=== PATIENT | male | born 1955 | race Caucasian/White ===

== ENCOUNTER 2021-01-01 18:53 | Inpatient (IN) ==
--- NOTE | 2021-01-01 20:48 | DR.GENAD ---
HPI Time Seen Time Seen by Provider: 01/01/21 20:47 PCP Primary Care Physician: WYATT RUTHERFORD Complaint/Symptoms Chief Complaint:: PT STATES TODAY HE HAS FELT WEAK AND FELT LIKE HE WAS OUT OF IT. STATES HE HAS ONLY LAID AROUND TODAY. STATES HE HASN'T FELT LIKE DOING ANYTHING. COVID-19 Coronavirus risk:travel/contact w/high risk person: No Has patient experienced Coronavirus symptoms: No Source History Provided: Patient Mode of Arrival Mode of Arrival: Ambulatory Timing Onset of Chief Complaint: 01/01/21 PMH PMH Past Medical History: Yes Past Medical History Comment: ESOPHAGEAL CANCER CHRONIC [place] CATHETER-URINARY RETENTION Past Surgical History: Yes Surgical History: Other Family History History of Family Medical Conditions: No Social History Does patient currently use any type of tobacco product: No Have you used tobacco products in the last 12 months: No Type of Tobacco Use: None Does any household member use tobacco: No Alcohol Use: None Do you use any recreational Drugs:: No Lives With: Spouse Lives Where: Home Travel Risk Coronavirus risk:travel/contact w/high risk person: No Has patient experienced Coronavirus symptoms: No Infectious screening Have you traveled outside the country in the last 6 months?: No Isolation: Standard PE Vital Signs Vitals: Temperature 97.8 F Pulse Rate 117 Respiratory Rate 16 Blood Pressure 101/64 O2 Sat by Pulse Oximetry 99 ROR Labs Reviewed Result Diagrams: 01/01/21 21:21 01/01/21 21:21 Laboratory: WBC 12.1 X10^3/uL (3.6-10.0) H 01/01/21 21:21 RBC 4.23 X10^6/uL (4.7-6.0) L 01/01/21 21:21 Hgb 11.7 g/dL (13.5-18.0) L 01/01/21 21:21 Hct 35.3 % (42.0-54.0) L 01/01/21 21:21 MCV 83.4 fL (80.0-100.0) 01/01/21 21:21 MCH 27.7 pg (27.0-34.0) 01/01/21 21:21 MCHC 33.2 g/dL (33.0-35.0) 01/01/21 21:21 RDW 14.4 % (11.6-16.5) 01/01/21 21:21 Plt Count 586 X10^3/uL (150.0-450.0) H 01/01/21 21:21 Plt Count Comment Increased (ADEQUATE) 01/01/21 21:21 MPV 7.2 fL (7.4-11.0) L 01/01/21 21:21 Neut % (Auto) 88.5 % (42.0-75.0) H 01/01/21 21:21 Lymph % (Auto) 1.6 % (21.0-51.0) L 01/01/21 21:21 [place] % (Auto) 6.6 % (0.0-13.0) 01/01/21 21:21 Eos % (Auto) 3.1 % (0.9-2.9) H 01/01/21 21:21 Baso % (Auto) 0.2 % (0.2-1.0) 01/01/21 21:21 Neut # (Auto) 10.7 x10^3/uL (2.2-4.8) H 01/01/21 21:21 Lymph # (Auto) 0.2 X10^3/uL (1.3-2.9) L 01/01/21 21:21 [place] # (Auto) 0.8 x10^3/uL (0.3-0.8) 01/01/21 21:21 Eos # (Auto) 0.4 x10^3/uL (0.0-0.2) H 01/01/21 21:21 Baso # (Auto) 0.0 X10^3/uL (0.0-0.1) 01/01/21 21:21 Absolute Nucleated RBC 0.0 /100WBC 01/01/21 21:21 Total Counted 100 01/01/21 21:21 Neutrophils % (Manual) 84 % (39-76) H 01/01/21 21:21 Band Neutrophils % 1 % (0-10) 01/01/21 21:21 Lymphocytes % (Manual) 3 % (13-43) L 01/01/21 21:21 Monocytes % (Manual) 7 % (4-9) 01/01/21 21:21 Eosinophils % (Manual) 5 % (0-6) 01/01/21 21:21 Plt Morphology Comment Normal (NORMAL) 01/01/21 21:21 RBC Morphology Normal (NORMAL) 01/01/21 21:21 Sodium 124 mmol/L (136-145) L* 01/01/21 21:21 Corrected Sodium TNP 01/01/21 21:21 Potassium 4.5 mmol/L (3.5-5.1) 01/01/21 21:21 Chloride 89 mmol/L (98-107) L 01/01/21 21: Carbon Dioxide 24.7 mmol/L (21-32) 01/01/21 21:21 BUN 11 mg/dL (7-18) 01/01/21 21:21 Creatinine 0.73 mg/dL (0.70-1.30) 01/01/21 21:21 Est GFR (MDRD) Af Amer > 60 (>60) 01/01/21 21:21 Est GFR (MDRD) Non-Af > 60 (>60) 01/01/21 21: Glucose 101 mg/dL (65-99) H 01/01/21 21:21 Calcium 8.7 mg/dL (8.5-10.1) 01/01/21 21: Corrected Calcium 10.1 mg/dL (8.5-10.1) 01/01/21 21: Total Bilirubin 0.30 mg/dL (0.2-1.0) 01/01/21 21:21 AST 114 Units/L (15-37) H 01/01/21 21:21 ALT 53 Units/L (12-78) 01/01/21 21: Alkaline Phosphatase 198 Units/L (46-116) H 01/01/21 21: Total Protein 7.1 g/dL (6.4-8.2) 01/01/21 21: Albumin 2.2 g/dL (3.4-5.0) L 01/01/21 21: Globulin 4.9 g/dL (2.5-4.5) H 01/01/21 21:21 Albumin/Globulin Ratio 0.4 Ratio (1.1-2.1) L 01/01/21 21:21 Specimen Type Clean catch urine 01/01/21 22:20 Urine Color Yellow (YELLOW) 01/01/21 22:20 Urine Appearance Cloudy (CLEAR) 01/01/21 22:20 Urine pH 5.0 (5.0 - 8.0) 01/01/21 22:20 Ur Specific [place] 1.020 (1.000-1.030) 01/01/21 22:20 Urine Protein 3+ (NEGATIVE) 01/01/21 22:20 Urine Glucose (UA) Negative (NEGATIVE) 01/01/21 22:20 Urine Ketones Negative (NEGATIVE) 01/01/21 22:20 Urine Occult Blood 5+ (NEGATIVE) 01/01/21 22:20 Urine Nitrite Positive (NEGATIVE) 01/01/21 22:20 Urine Bilirubin Negative (NEGATIVE) 01/01/21 22:20 Urine Urobilinogen 1+ (NORMAL) 01/01/21 22:20 Ur Leukocyte Esterase 3+ (NEGATIVE) 01/01/21 22:20 SARS CoV-2 RNA Rapid BORIS Negative (NEGATIVE) 01/01/21 23:33 Opioid Opioid Risk Tool Age (Joon box if 16-45): No Total: 0 Total Score Risk Category: Low Risk Copyright: Savage AVITIA predicting aberrant behaviors Diagnosis Discharge Problem: Acute hyponatremia, Acute dehydration UTI (urinary tract infection) Qualifiers: Urinary tract infection type: site unspecified Hematuria presence: with hematuria Qualified Code(s): N39.0 - Urinary tract infection, site not specified Instructions Forms: Precautions for COVID19 [facility] Patient Portal Social Distancing
[2021-01-01 21:32] LABS: BASOPHILS % (AUTO) 0.2 % (0.2-1.0); EOSINOPHILS # (AUTO) 0.4 x10^3/uL (0.0-0.2); EOSINOPHILS % (AUTO) 3.1 % (0.9-2.9); HEMATOCRIT 35.3 % (42.0-54.0); HEMOGLOBIN 11.7 g/dL (13.5-18.0); LYMPHOCYTES # (AUTO) 0.2 X10^3/uL (1.3-2.9); LYMPHOCYTES % (AUTO) 1.6 % (21.0-51.0); MEAN CORPUSCULAR HEMOGLOBIN 27.7 pg (27.0-34.0); MEAN CORPUSCULAR HGB CONC 33.2 g/dL (33.0-35.0); MEAN CORPUSCULAR VOLUME 83.4 fL (80.0-100.0); MEAN PLATELET VOLUME 7.2 fL (7.4-11.0); MONOCYTES # (AUTO) 0.8 x10^3/uL (0.3-0.8); MONOCYTES % (AUTO) 6.6 % (0.0-13.0); NEUTROPHILS # (AUTO) 10.7 x10^3/uL (2.2-4.8); NEUTROPHILS % (AUTO) 88.5 % (42.0-75.0); PLATELET COUNT 586 X10^3/uL (150.0-450.0); RED BLOOD COUNT 4.23 X10^6/uL (4.7-6.0); RED CELL DISTRIBUTION WIDTH 14.4 % (11.6-16.5); WHITE BLOOD COUNT 12.1 X10^3/uL (3.6-10.0)
--- NOTE | 2021-01-01 21:38 | RAD ---
HISTORYPT STATES TODAY HE HAS FELT WEAK AND FELT LIKE HE WAS OUT OF IT. STATES HE HAS ONLY LAID AROUND TODAY. STATES HE HASN'T FELT LIKE DOING ANYTHING.STUDYCHEST, 1 VIEWCOMPARISONNone availableTECHNIQUEChest radiographic imaging, AP portable projection, 1 imageFINDINGSNo cardiomegaly.Widening of the superior mediastinum, with the lobulated margin, 210.4 cm in with.1.4 cm nodular density in the right upper lobe.No focal airspace disease.No pleural effusion.No pneumothorax.No acute osseous abnormality.IMPRESSION1. Widening of the superior mediastinum could represent adenopathy, enlargement of the thymus or enlargement of an intrathoracic portion of the thyroid gland.2. 1.4 cm nodular density in the right upper lobe. Recommend a chest CT for further characterization.Electronically signed by: Romain Torres (Jan 01, 2021 21:37:40)
[2021-01-01 21:49] LABS: ALANINE AMINOTRANSFERASE 53 Units/L (12-78); ALBUMIN 2.2 g/dL (3.4-5.0); ALKALINE PHOSPHATASE 198 Units/L (46-116); ASPARTATE AMINO TRANSFERASE 114 Units/L (15-37); BLOOD UREA NITROGEN 11 mg/dL (7-18); CALCIUM 8.7 mg/dL (8.5-10.1); CARBON DIOXIDE 24.7 mmol/L (21-32); CHLORIDE 89 mmol/L (98-107); COR CA(FOR HYPOALB) 10.1 mg/dL (8.5-10.1); CREATININE 0.73 mg/dL (0.70-1.30); TOTAL PROTEIN 7.1 g/dL (6.4-8.2); eGFR NON BLACK RACES > 60 (>60)
[2021-01-01 21:56] LABS: SODIUM 124 mmol/L (136-145)
[2021-01-01 22:03] LABS: BAND NEUTROPHILS % 1 % (0-10); PLATELET MORPHOLOGY COMMENT NORMAL (NORMAL)
[2021-01-01 22:46] LABS: BILIRUBIN,URINE NEGATIVE (NEGATIVE); BLOOD/HEMOGLOBIN,URINE 5+ (NEGATIVE); GLUCOSE, URINE NEGATIVE (NEGATIVE); KETONES,URINE NEGATIVE (NEGATIVE); LEUKOCYTE ESTERASE ,URINE 3+ (NEGATIVE); NITRITES,URINE POSITIVE (NEGATIVE); PROTEIN,URINE 3+ (NEGATIVE); UROBILINOGEN,URINE 1+ (NORMAL)
[2021-01-01 22:51] LABS: APPEARANCE,URINE CLOUDY (CLEAR); COLOR,URINE YELLOW (YELLOW)
[2021-01-01] MEDS ORDERED: NS 1,000 ML IV 1,000 ML ONE (23:25)
[2021-01-01] MEDS: NS 1,000 ML IV 1,000 ML IV SCH (23:34)
[2021-01-02] MEDS ORDERED: ROCEPHIN 1 GRAM IV PREMIX 1 G/50 ML IV.SOLN. IV ONE ×2 (00:40→00:49)
[2021-01-02 04:29] VITALS: BMI 25.4
[2021-01-02] MEDS ORDERED: AMBIEN PO PRN (05:59)
[2021-01-02] MEDS ORDERED: HYDROMORPHONE 2 MG PO SCH (05:59)
[2021-01-02] MEDS ORDERED: BUTT CREAM (COMPOUND) TOP PRN (06:57)
[2021-01-02] MEDS: NS 1,000 ML IV 1,000 ML IV SCH ×3 (07:43→23:45)
[2021-01-02] MEDS ORDERED: DILAUDID ONE (08:40)
[2021-01-02] MEDS ORDERED: DURAGESIC 75 mcg/HR PATCH TD SCH (09:00)
[2021-01-02] MEDS: ZOFRAN TAB 4 MG PO PRN (10:00)
[2021-01-02] MEDS: COZAAR PO SCH (10:00)
[2021-01-02] MEDS: DILAUDID PO SCH ×4 (10:00→20:53)
[2021-01-02] MEDS: PriLOSEC PO SCH ×2 (10:01→20:55)
[2021-01-02 10:07] LABS: BASOPHILS # (AUTO) 0.1 X10^3/uL (0.0-0.1); BASOPHILS % (AUTO) 0.9 % (0.2-1.0); EOSINOPHILS # (AUTO) 0.3 x10^3/uL (0.0-0.2); EOSINOPHILS % (AUTO) 2.8 % (0.9-2.9); HEMATOCRIT 31.8 % (42.0-54.0); HEMOGLOBIN 10.9 g/dL (13.5-18.0); LYMPHOCYTES # (AUTO) 0.2 X10^3/uL (1.3-2.9); LYMPHOCYTES % (AUTO) 1.6 % (21.0-51.0); MEAN CORPUSCULAR HEMOGLOBIN 28.3 pg (27.0-34.0); MEAN CORPUSCULAR HGB CONC 34.2 g/dL (33.0-35.0); MEAN CORPUSCULAR VOLUME 82.6 fL (80.0-100.0); MEAN PLATELET VOLUME 7.2 fL (7.4-11.0); MONOCYTES # (AUTO) 0.5 x10^3/uL (0.3-0.8); MONOCYTES % (AUTO) 5.7 % (0.0-13.0); NEUTROPHILS # (AUTO) 8.4 x10^3/uL (2.2-4.8); PLATELET COUNT 649 X10^3/uL (150.0-450.0); RED BLOOD COUNT 3.85 X10^6/uL (4.7-6.0); RED CELL DISTRIBUTION WIDTH 14.4 % (11.6-16.5); WHITE BLOOD COUNT 9.4 X10^3/uL (3.6-10.0)
[2021-01-02 10:13] LABS: ALANINE AMINOTRANSFERASE 50 Units/L (12-78); ALBUMIN 2.2 g/dL (3.4-5.0); ALKALINE PHOSPHATASE 193 Units/L (46-116); ASPARTATE AMINO TRANSFERASE 107 Units/L (15-37); BLOOD UREA NITROGEN 11 mg/dL (7-18); CARBON DIOXIDE 27.7 mmol/L (21-32); CHLORIDE 91 mmol/L (98-107); COR CA(FOR HYPOALB) 10.4 mg/dL (8.5-10.1); CREATININE 0.77 mg/dL (0.70-1.30); SODIUM 128 mmol/L (136-145); TOTAL PROTEIN 7.2 g/dL (6.4-8.2); eGFR NON BLACK RACES > 60 (>60)
--- NOTE | 2021-01-02 11:21 | DR.H&P ---
H&P History & Physical for Day of: H&P Date: 01/02/21 Chief Complaint Chief Complaint: weakness, dehydration, constipation Allergies Allergies Allergy/AdvReac Type Severity Reaction Status Date / Time No Known Drug Allergies Allergy Verified 10/27/20 13:30 History of Present Illness History of Present Illness: Mr Palmer is a 65y/o male with recently diagnosed [place] 4 esophageal cancer. Patient was diagnosed last month, sees Dr Wen and is currently receiving radiation treatments. He was discharged from [facility] last week due to back pain. His fentanyl patch was increased from 25 mcg to 75mcg and started on hydromorphone 2mg tablet for cancer pain. Patient has severe constipation. He does not eat anything by mouth, everything is given via PEG tube. Patient was admitted for dehydration, hyponatremia, UTI and constipation. Labs and imaging reviewed CXR: showed wide mediastinum and nodules, CT was recommended. Plan: jess order CTA to asses further. Continue IV hydration with NS. Monitor BMP. Resume home medications. Continue IV Rocephin, follow urine culture. Add Zofran prn, enema for constipation. Continue pain control. Monitor AM labs/imaging. Time spent for clinical assessment, reviewing abs/imaging, physical exam, decision making and documentation greater than 45 mins. Past Medical History Past Medical History: CVA, GERD and Hypertension Additional Medical History: Stage 4 esophageal Ca Past Surgical History Surgical History: Other Social History Does patient currently use any type of tobacco product: No Have you used tobacco products in the last 12 months: No Type of Tobacco Use: None Does any household member use tobacco: No Alcohol Use: None Drug Use: None Prescription drug monitoring program results: PDMP reviewed and no concerns identified Medications Home Medications: No Known Drug Allergies Allergy (Verified 10/27/20 13:30) CONTINUE taking the following medications fentanyl 1 patch TRANSDERMAL DIRECTED 01/01/21 [History] finasteride 5 mg PO QHS 01/01/21 [History] hydrocodone-acetaminophen 15 ml PO Q6HR PRN 01/01/21 [History] hydromorphone 6 mg PO Q4H 01/01/21 [History] losartan 100 mg PO DAILY 01/01/21 [History] omeprazole 20 mg PO BID 01/01/21 [History] ondansetron HCl 4 mg PO QID PRN 01/01/21 [History] tamsulosin 0.4 mg PO QHS 01/01/21 [History] zolpidem 5 mg PO QHS PRN 01/01/21 [History] Labs Result Diagrams: 01/03/21 05:25 01/03/21 05:25 Labs: Laboratory WBC 9.4 X10^3/uL (3.6-10.0) 01/02/21 09:32 RBC 3.85 X10^6/uL (4.7-6.0) L 01/02/21 09:32 Hgb 10.9 g/dL (13.5-18.0) L 01/02/21 09:32 Hct 31.8 % (42.0-54.0) L 01/02/21 09:32 MCV 82.6 fL (80.0-100.0) 01/02/21 09:32 MCH 28.3 pg (27.0-34.0) 01/02/21 09:32 MCHC 34.2 g/dL (33.0-35.0) 01/02/21 09:32 RDW 14.4 % (11.6-16.5) 01/02/21 09:32 Plt Count 649 X10^3/uL (150.0-450.0) H 01/02/21 09:32 Plt Count Comment Increased (ADEQUATE) 01/01/21 21:21 MPV 7.2 fL (7.4-11.0) L 01/02/21 09:32 Neut % (Auto) 89.0 % (42.0-75.0) H 01/02/21 09:32 Lymph % (Auto) 1.6 % (21.0-51.0) L 01/02/21 09:32 [place] % (Auto) 5.7 % (0.0-13.0) 01/02/21 09:32 Eos % (Auto) 2.8 % (0.9-2.9) 01/02/21 09:32 Baso % (Auto) 0.9 % (0.2-1.0) 01/02/21 09:32 Neut # (Auto) 8.4 x10^3/uL (2.2-4.8) H 01/02/21 09:32 Lymph # (Auto) 0.2 X10^3/uL (1.3-2.9) L 01/02/21 09:32 [place] # (Auto) 0.5 x10^3/uL (0.3-0.8) 01/02/21 09:32 Eos # (Auto) 0.3 x10^3/uL (0.0-0.2) H 01/02/21 09:32 Baso # (Auto) 0.1 X10^3/uL (0.0-0.1) 01/02/21 09:32 Absolute Nucleated RBC 0.1 /100WBC 01/02/21 09:32 Total Counted 100 01/01/21 21:21 Neutrophils % (Manual) 84 % (39-76) H 01/01/21 21:21 Band Neutrophils % 1 % (0-10) 01/01/21 21:21 Lymphocytes % (Manual) 3 % (13-43) L 01/01/21 21:21 Monocytes % (Manual) 7 % (4-9) 01/01/21 21:21 Eosinophils % (Manual) 5 % (0-6) 01/01/21 21:21 Plt Morphology Comment Normal (NORMAL) 01/01/21 21:21 RBC Morphology Normal (NORMAL) 01/01/21 21:21 Sodium 128 mmol/L (136-145) L 01/02/21 09:32 Corrected Sodium TNP 01/02/21 09:32 Potassium 4.3 mmol/L (3.5-5.1) 01/02/21 09:32 Chloride 91 mmol/L (98-107) L 01/02/21 09:32 Carbon Dioxide 27.7 mmol/L (21-32) 01/02/21 09:32 BUN 11 mg/dL (7-18) 01/02/21 09:32 Creatinine 0.77 mg/dL (0.70-1.30) 01/02/21 09:32 Est GFR (MDRD) Af Amer > 60 (>60) 01/02/21 09:32 Est GFR (MDRD) Non-Af > 60 (>60) 01/02/21 09:32 Glucose 109 mg/dL (65-99) H 01/02/21 09:32 Calcium 9.0 mg/dL (8.5-10.1) 01/02/21 09:32 Corrected Calcium 10.4 mg/dL (8.5-10.1) H 01/02/21 09:32 Total Bilirubin 0.40 mg/dL (0.2-1.0) 01/02/21 09:32 AST 107 Units/L (15-37) H 01/02/21 09:32 ALT 50 Units/L (12-78) 01/02/21 09:32 Alkaline Phosphatase 193 Units/L (46-116) H 01/02/21 09:32 Total Protein 7.2 g/dL (6.4-8.2) 01/02/21 09:32 Albumin 2.2 g/dL (3.4-5.0) L 01/02/21 09:32 Globulin 5.0 g/dL (2.5-4.5) H 01/02/21 09:32 Albumin/Globulin Ratio 0.4 Ratio (1.1-2.1) L 01/02/21 09:32 Specimen Type Clean catch urine 01/01/21 22:20 Urine Color Yellow (YELLOW) 01/01/21 22:20 Urine Appearance Cloudy (CLEAR) 01/01/21 22:20 Urine pH 5.0 (5.0 - 8.0) 01/01/21 22:20 Ur Specific [place] 1.020 (1.000-1.030) 01/01/21 22:20 Urine Protein 3+ (NEGATIVE) 01/01/21 22:20 Urine Glucose (UA) Negative (NEGATIVE) 01/01/21 22:20 Urine Ketones Negative (NEGATIVE) 01/01/21 22:20 Urine Occult Blood 5+ (NEGATIVE) 01/01/21 22:20 Urine Nitrite Positive (NEGATIVE) 01/01/21 22:20 Urine Bilirubin Negative (NEGATIVE) 01/01/21 22:20 Urine Urobilinogen 1+ (NORMAL) 01/01/21 22:20 Ur Leukocyte Esterase 3+ (NEGATIVE) 01/01/21 22:20 SARS CoV-2 RNA Rapid BORIS Negative (NEGATIVE) 01/01/21 23:33 Review of Systems Constitutional: Weakness Eyes: No Symptoms Reported ENT: No Symptoms Reported Respiratory: No Symptoms Reported Cardiovascular: No Symptoms Reported Gastrointestinal: Nausea and Constipation Genitourinary: No Symptoms Reported Musculoskeletal: Other (abdominal and chest pain due to cancer ) Skin: No Symptoms Reported Neurological: No Symptoms Reported Physical Exam Vital Signs: Temperature 98.0 F Pulse Rate [Right] 92 Pulse Rate 117 Respiratory Rate 20 Blood Pressure [Left Arm] 136/71 Blood Pressure 101/64 O2 Sat by Pulse Oximetry 98 Oriented: Normal Eyes: Normal Ear: Normal Nose: Normal Throat: Dry Respiratory: Diminished Throughout Cardiovascular: Normal Auscultation: Bowel Sounds: Normal Palpation: Other (PEG tube intact, no sign of infection, no surrounding erythema ) Tenderness: Epigastric and Mild Skin: Decreased [place]urgur Musculoskeletal: Normal Psychiatric: Normal Mood Description: Calm Affect: Normal Speech Pattern: Clear and Appropriate Assessment/Plan (1) Acute hyponatremia: Status: Acute (2) Acute dehydration: Status: Acute (3) UTI (urinary tract infection): Qualifiers: Hematuria presence: with hematuria Urinary tract infection type: site unspecified Qualified Code(s): N39.0 - Urinary tract infection, site not specified; R31.9 - Hematuria, unspecified Status: Acute (4) Adenocarcinoma of esophagus, stage 4: Status: Acute (5) G tube feedings: Status: Acute (6) HTN (hypertension): Qualifiers: Hypertension type: primary hypertension Qualified Code(s): I10 - Essential (primary) hypertension Status: Acute Review H&P Reviewed: Yes Patient was examined?: Yes
[2021-01-02] MEDS ORDERED: HYDROGEN PEROXIDE 3% ONE (14:16)
--- NOTE | 2021-01-02 14:28 | CT ---
HISTORYFollow-up of abnormal findings on recent chest radiograph including right upper lobe nodule and widened mediastinum.STUDYCTA CHESTCOMPARISONChest radiograph dated 01/01/2021.TECHNIQUEMultiple axial images of the chest were obtained from the thoracic inlet to the upper abdomen after the administration of IV contrast. 3D reconstructions utilizing axial MIPS imaging was performed and reviewed. Dose reduction techniques including Automated Exposure Control (AEC) and adjustment of mA and kV were utilized.FINDINGSThis study is performed as a pulmonary embolus protocol and as such optimal evaluation of the mediastinal soft tissues and thoracic aorta is limited secondary to bolus timing. There are no filling defects through the segmental level of the pulmonary arterial system bilaterally. The main pulmonary artery is normal in size. The heart is normal in size without pericardial effusion. The thoracic aorta is normal in contour without aneurysmal dilatation.There is an abnormal appearance of the esophagus at and below the level of the reynaldo with diffuse circumferential thickening which measures up to 7 cm in diameter. There is extensive mediastinal lymphadenopathy with an approximately 5.0 x 6.5 x 7.3 cm soft tissue mass centered in the superior mediastinum near the level of the sternoclavicular junctions which may reflect lymphadenopathy as well. This mass is located along the posterior lateral aspect of the trachea on the left and results in deviation of the trachea and esophagus rightward. There are enlarged hilar lymph nodes on the right. Extensive lymphadenopathy is noted throughout the included portions of the upper abdomen. There are incompletely characterized hepatic hypodensities concerning for hepatic metastases. Percutaneous gastrostomy tube is present. Evaluation of the lung parenchyma demonstrates scattered bilateral pulmonary nodules throughout both lungs concerning for pulmonary metastasis. There is a small left pleural effusion. The bony structures are grossly unremarkable.IMPRESSION1. No evidence of acute pulmonary thromboembolic disease through the segmental pulmonary artery bilaterally.2. Findings compatible with malignancy involving the mediastinum and upper abdomen as above. Mediastinal abnormalities correspond to findings on recent chest radiograph. Correlation with clinical history is requested and comparison with prior imaging, which has almost certainly been performed, is suggested to evaluate for interval change.Electronically signed by: SHIRA JACKSON (Jan 02, 2021 14:26:07)
[2021-01-02] MEDS: ROCEPHIN 1 GRAM IV PREMIX 1 G/50 ML IV.SOLN. IV SCH (20:54)
[2021-01-02] MEDS: FLOMAX PO SCH (20:55)
[2021-01-02] MEDS: PROSCAR PO SCH (20:56)
[2021-01-02] MEDS: COLACE CAP 100 MG PO SCH (20:56)
[2021-01-03] MEDS: DILAUDID PO SCH ×3 (03:58→08:37)
[2021-01-03 06:16] LABS: BASOPHILS % (AUTO) 0.5 % (0.2-1.0); EOSINOPHILS # (AUTO) 0.4 x10^3/uL (0.0-0.2); EOSINOPHILS % (AUTO) 4.9 % (0.9-2.9); HEMATOCRIT 30.3 % (42.0-54.0); HEMOGLOBIN 10.4 g/dL (13.5-18.0); LYMPHOCYTES # (AUTO) 0.1 X10^3/uL (1.3-2.9); LYMPHOCYTES % (AUTO) 1.2 % (21.0-51.0); MEAN CORPUSCULAR HEMOGLOBIN 28.3 pg (27.0-34.0); MEAN CORPUSCULAR HGB CONC 34.3 g/dL (33.0-35.0); MEAN CORPUSCULAR VOLUME 82.3 fL (80.0-100.0); MEAN PLATELET VOLUME 7.2 fL (7.4-11.0); MONOCYTES # (AUTO) 0.7 x10^3/uL (0.3-0.8); MONOCYTES % (AUTO) 7.3 % (0.0-13.0); NEUTROPHILS # (AUTO) 7.8 x10^3/uL (2.2-4.8); NEUTROPHILS % (AUTO) 86.1 % (42.0-75.0); PLATELET COUNT 587 X10^3/uL (150.0-450.0); RED BLOOD COUNT 3.68 X10^6/uL (4.7-6.0); RED CELL DISTRIBUTION WIDTH 14.8 % (11.6-16.5); WHITE BLOOD COUNT 9.1 X10^3/uL (3.6-10.0)
[2021-01-03 06:26] LABS: ALANINE AMINOTRANSFERASE 47 Units/L (12-78); ALKALINE PHOSPHATASE 175 Units/L (46-116); ASPARTATE AMINO TRANSFERASE 110 Units/L (15-37); BLOOD UREA NITROGEN 10 mg/dL (7-18); CALCIUM 8.4 mg/dL (8.5-10.1); CARBON DIOXIDE 25.9 mmol/L (21-32); CHLORIDE 91 mmol/L (98-107); COR NA(FOR HYPERGLY) 123 mmol/L (136-145); CREATININE 0.65 mg/dL (0.70-1.30); TOTAL PROTEIN 6.5 g/dL (6.4-8.2); eGFR NON BLACK RACES > 60 (>60)
[2021-01-03 06:43] LABS: SODIUM 123 mmol/L (136-145)
[2021-01-03] MEDS: NS 1,000 ML IV 1,000 ML IV SCH ×4 (08:30→16:48)
[2021-01-03] MEDS: COZAAR PO SCH (08:56)
[2021-01-03] MEDS: PriLOSEC PO SCH ×2 (08:56→21:13)
[2021-01-03] MEDS: ZOFRAN TAB 4 MG PO PRN (08:57)
[2021-01-03] MEDS: LORTAB ELIX 7.5/325 MG (15 ML) PO PRN (09:30)
[2021-01-03] MEDS: CHRONULAC PO SCH (10:59)
--- NOTE | 2021-01-03 11:32 | PCM.PROG ---
Progress Note Progress Note for Day of Date of Exam: 01/03/21 Subjective Subjective: Patient seen at bedside, no events overnight. He did not have a BM even after 2 enemas. He has been getting IVF and tube feeds. Labs and imaging discussed with at bedside. CTA did show esophageal thickening with moderate LAD along with deviation of trachea and esophagus to the right along with hepatic and pulmonary metastatic disease. Plan: will get a KUB, add lactulose for constipation. Will check with pharmacy regarding changing tube feed formula, currently getting Jevity 4-5 times a day with 60mL free water flushes. Will decrease free water to 40 mL per feed. Continue Rocephin, follow urine Cx. Monitor BMP. Past Medical Family Social History Past Med/Fam/Surg Hx: No changes since H&P Allergies: Allergies No Known Drug Allergies Allergy (Verified 10/27/20 13:30) Review of Systems ROS: No change since H&P Vital Signs and I&O's Vital Signs: Temperature 97.5 F Pulse Rate [Right] 92 Pulse Rate 117 Respiratory Rate 18 Blood Pressure [Left Arm] 136/71 Blood Pressure 101/64 O2 Sat by Pulse Oximetry 96 Intake and Output: Intake & Output 12/31/20 01/01/21 01/02/21 01/03/21 23:59 23:59 23:59 23:59 Intake Total 1268 / 1268 1728 / 1728 Output Total 2200 / 2200 425 / 425 Balance -932 / -932 1303 / 1303 Physical Exam Oriented: Normal Eyes: Normal Ear: Normal Nose: Normal Throat: Dry Cardiovascular: Normal Auscultation: Bowel Sounds: Normal Tenderness: Epigastric and Mild Skin: Decreased [place] Musculoskeletal: Normal Psychiatric: Normal Mood Description: Calm Affect: Normal Speech Pattern: Clear and Appropriate Laboratory and Diagnostics Result Diagrams: 01/03/21 05:25 01/03/21 05:25 Labs: 01/01/21 22:20 Urine,Clean Catch Urine Culture - Preliminary Laboratory WBC 9.1 X10^3/uL (3.6-10.0) 01/03/21 05:25 RBC 3.68 X10^6/uL (4.7-6.0) L 01/03/21 05:25 Hgb 10.4 g/dL (13.5-18.0) L 01/03/21 05:25 Hct 30.3 % (42.0-54.0) L 01/03/21 05:25 MCV 82.3 fL (80.0-100.0) 01/03/21 05:25 MCH 28.3 pg (27.0-34.0) 01/03/21 05:25 MCHC 34.3 g/dL (33.0-35.0) 01/03/21 05:25 RDW 14.8 % (11.6-16.5) 01/03/21 05:25 Plt Count 587 X10^3/uL (150.0-450.0) H 01/03/21 05:25 Plt Count Comment Increased (ADEQUATE) 01/01/21 21:21 MPV 7.2 fL (7.4-11.0) L 01/03/21 05:25 Neut % (Auto) 86.1 % (42.0-75.0) H 01/03/21 05:25 Lymph % (Auto) 1.2 % (21.0-51.0) L 01/03/21 05:25 [place] % (Auto) 7.3 % (0.0-13.0) 01/03/21 05:25 Eos % (Auto) 4.9 % (0.9-2.9) H 01/03/21 05:25 Baso % (Auto) 0.5 % (0.2-1.0) 01/03/21 05:25 Neut # (Auto) 7.8 x10^3/uL (2.2-4.8) H 01/03/21 05:25 Lymph # (Auto) 0.1 X10^3/uL (1.3-2.9) L 01/03/21 05:25 [place] # (Auto) 0.7 x10^3/uL (0.3-0.8) 01/03/21 05:25 Eos # (Auto) 0.4 x10^3/uL (0.0-0.2) H 01/03/21 05:25 Baso # (Auto) 0.0 X10^3/uL (0.0-0.1) 01/03/21 05:25 Absolute Nucleated RBC 0.0 /100WBC 01/03/21 05:25 Total Counted 100 01/01/21 21:21 Neutrophils % (Manual) 84 % (39-76) H 01/01/21 21:21 Band Neutrophils % 1 % (0-10) 01/01/21 21:21 Lymphocytes % (Manual) 3 % (13-43) L 01/01/21 21:21 Monocytes % (Manual) 7 % (4-9) 01/01/21 21:21 Eosinophils % (Manual) 5 % (0-6) 01/01/21 21:21 Plt Morphology Comment Normal (NORMAL) 01/01/21 21:21 RBC Morphology Normal (NORMAL) 01/01/21 21:21 Sodium 123 mmol/L (136-145) L* 01/03/21 05:25 Corrected Sodium 123 mmol/L (136-145) L 01/03/21 05:25 Potassium 4.1 mmol/L (3.5-5.1) 01/03/21 05:25 Chloride 91 mmol/L (98-107) L 01/03/21 05:25 Carbon Dioxide 25.9 mmol/L (21-32) 01/03/21 05:25 BUN 10 mg/dL (7-18) 01/03/21 05:25 Creatinine 0.65 mg/dL (0.70-1.30) L 01/03/21 05:25 Est GFR (MDRD) Af Amer > 60 (>60) 01/03/21 05:25 Est GFR (MDRD) Non-Af > 60 (>60) 01/03/21 05:25 Glucose 120 mg/dL (65-99) H 01/03/21 05:25 Calcium 8.4 mg/dL (8.5-10.1) L 01/03/21 05:25 Corrected Calcium 10.0 mg/dL (8.5-10.1) 01/03/21 05:25 Magnesium 2.0 mg/dL (1.7-2.9) 01/03/21 05:25 Total Bilirubin 0.40 mg/dL (0.2-1.0) 01/03/21 05:25 AST 110 Units/L (15-37) H 01/03/21 05:25 ALT 47 Units/L (12-78) 01/03/21 05:25 Alkaline Phosphatase 175 Units/L (46-116) H 01/03/21 05:25 Total Protein 6.5 g/dL (6.4-8.2) 01/03/21 05:25 Albumin 2.0 g/dL (3.4-5.0) L 01/03/21 05:25 Globulin 4.5 g/dL (2.5-4.5) 01/03/21 05:25 Albumin/Globulin Ratio 0.4 Ratio (1.1-2.1) L 01/03/21 05:25 Specimen Type Clean catch urine 01/01/21 22:20 Urine Color Yellow (YELLOW) 01/01/21 22:20 Urine Appearance Cloudy (CLEAR) 01/01/21 22:20 Urine pH 5.0 (5.0 - 8.0) 01/01/21 22:20 Ur Specific [place] 1.020 (1.000-1.030) 01/01/21 22:20 Urine Protein 3+ (NEGATIVE) 01/01/21 22:20 Urine Glucose (UA) Negative (NEGATIVE) 01/01/21 22:20 Urine Ketones Negative (NEGATIVE) 01/01/21 22:20 Urine Occult Blood 5+ (NEGATIVE) 01/01/21 22:20 Urine Nitrite Positive (NEGATIVE) 01/01/21 22:20 Urine Bilirubin Negative (NEGATIVE) 01/01/21 22:20 Urine Urobilinogen 1+ (NORMAL) 01/01/21 22:20 Ur Leukocyte Esterase 3+ (NEGATIVE) 01/01/21 22:20 SARS CoV-2 RNA Rapid BORIS Negative (NEGATIVE) 01/01/21 23:33 Plan (1) Acute hyponatremia: Status: Acute (2) Acute dehydration: Status: Acute (3) UTI (urinary tract infection): Status: Acute Qualifiers: Hematuria presence: with hematuria Urinary tract infection type: site unspecified Qualified Code(s): N39.0 - Urinary tract infection, site not specified; R31.9 - Hematuria, unspecified (4) Adenocarcinoma of esophagus, stage 4: Status: Acute (5) G tube feedings: Status: Acute (6) HTN (hypertension): Status: Acute Qualifiers: Hypertension type: primary hypertension Qualified Code(s): I10 - Essential (primary) hypertension
[2021-01-03] MEDS ORDERED: DILAUDID PO PRN (11:40)
[2021-01-03] MEDS ORDERED: DILAUDID PO SCH (12:38)
--- NOTE | 2021-01-03 13:48 | RAD ---
HISTORYAbdominal distension, esophageal CASTUDYKUBCOMPARISONNoneFINDIN GSThe intestinal gas pattern is nonobstructive and does not suggest ileus. No evidence for mass, organ enlargement, ascites or abnormal calcification. G-tube is suggested.IMPRESSIONNo acute abdominal abnormality identified.Electronically signed by: JAYJAY MARTELL (Jan 03, 2021 13:45:27)
[2021-01-03 16:18] LABS: BLOOD UREA NITROGEN 10 mg/dL (7-18); CALCIUM 8.1 mg/dL (8.5-10.1); CARBON DIOXIDE 26.3 mmol/L (21-32); CHLORIDE 94 mmol/L (98-107); CREATININE 0.71 mg/dL (0.70-1.30); SODIUM 127 mmol/L (136-145); eGFR NON BLACK RACES > 60 (>60)
[2021-01-03] MEDS: FLOMAX PO SCH (21:12)
[2021-01-03] MEDS: ROCEPHIN 1 GRAM IV PREMIX 1 G/50 ML IV.SOLN. IV SCH (21:13)
[2021-01-03] MEDS: PROSCAR PO SCH (21:13)
[2021-01-03] MEDS: COLACE CAP 100 MG PO SCH (21:13)
[2021-01-04] MEDS: NS 1,000 ML IV 1,000 ML IV SCH ×2 (02:18→09:50)
[2021-01-04] MEDS: LORTAB ELIX 7.5/325 MG (15 ML) PO PRN ×2 (03:11→10:57)
[2021-01-04 06:21] LABS: ALANINE AMINOTRANSFERASE 42 Units/L (12-78); ALBUMIN 1.8 g/dL (3.4-5.0); ALKALINE PHOSPHATASE 163 Units/L (46-116); ASPARTATE AMINO TRANSFERASE 114 Units/L (15-37); BLOOD UREA NITROGEN 10 mg/dL (7-18); CALCIUM 8.1 mg/dL (8.5-10.1); CARBON DIOXIDE 23.7 mmol/L (21-32); CHLORIDE 96 mmol/L (98-107); COR CA(FOR HYPOALB) 9.9 mg/dL (8.5-10.1); COR NA(FOR HYPERGLY) 129 mmol/L (136-145); SODIUM 128 mmol/L (136-145); TOTAL PROTEIN 6.1 g/dL (6.4-8.2); eGFR NON BLACK RACES > 60 (>60)
[2021-01-04 06:24] LABS: BASOPHILS % (AUTO) 0.4 % (0.2-1.0); EOSINOPHILS # (AUTO) 0.2 x10^3/uL (0.0-0.2); EOSINOPHILS % (AUTO) 2.1 % (0.9-2.9); HEMATOCRIT 27.3 % (42.0-54.0); HEMOGLOBIN 9.5 g/dL (13.5-18.0); LYMPHOCYTES # (AUTO) 0.1 X10^3/uL (1.3-2.9); LYMPHOCYTES % (AUTO) 0.9 % (21.0-51.0); MEAN CORPUSCULAR HEMOGLOBIN 28.9 pg (27.0-34.0); MEAN CORPUSCULAR HGB CONC 34.8 g/dL (33.0-35.0); MEAN PLATELET VOLUME 7.2 fL (7.4-11.0); MONOCYTES # (AUTO) 0.5 x10^3/uL (0.3-0.8); NEUTROPHILS % (AUTO) 89.6 % (42.0-75.0); PLATELET COUNT 555 X10^3/uL (150.0-450.0); RED BLOOD COUNT 3.29 X10^6/uL (4.7-6.0); RED CELL DISTRIBUTION WIDTH 14.3 % (11.6-16.5); WHITE BLOOD COUNT 7.8 X10^3/uL (3.6-10.0)
[2021-01-04] MEDS ORDERED: LOVENOX INJ 40 MG SYR SC SCH (09:00)
[2021-01-04] MEDS: PriLOSEC PO SCH (09:50)
[2021-01-04] MEDS: COZAAR PO SCH (09:50)
[2021-01-04] MEDS: CHRONULAC PO SCH (10:57)
[2021-01-04] MEDS: ZOFRAN TAB 4 MG PO PRN (10:57)
[2021-01-04 16:36] VITALS: BP 112/65
== END 2021-01-04 16:50 | disposition home health service (06) | DRG 690 ==
LOC: MED/SURG 18:54 → ER 18:54 → OBSVTOIN 01-02 00:33 → MED/SURG 01-02 01:15
PROVIDERS: ADMIT Family Medicine; ATTEND Internal Medicine